=== PATIENT | female | born 1995 | race Two or more races ===

== ENCOUNTER 2019-10-31 10:43 | Emergency (ER) | payer MEDICAID ==
[~2019-10-31] VITALS: Ht 160 cm; Wt 69.0 kg
[2019-10-31 11:15] LABS: BILIRUBIN,URINE NEGATIVE (NEG); CLARITY,URINE CLEAR; COLOR,URINE YELLOW; NITRITE,URINE NEGATIVE (NEG); PH,URINE 6.5 (<5.0-8.0); PROTEIN,URINE NEGATIVE (NEG-TRACE); UROBILINOGEN,URINE 0.2 mg/dL (0.2 mg/dL)
[2019-10-31 11:32] LABS: BACTERIA,URINE FEW /HPF (0-FEW); SQUAMOUS EPITHELIAL CELL,UR MOD /LPF; WBC,URINE OCC /HPF (0-4)
[2019-10-31 12:22] LABS: BASO % 1 % (0-3); EOS % 0 % (0-3); HEMOGLOBIN 14.2 g/dL (12.0-15.5); LYMPH # 1.5 x10^3/uL (1.0-4.8); LYMPH % 18 % (24-48); MEAN CORPUSCULAR HEMOGLOBIN 31 pg (25-35); MEAN CORPUSCULAR HGB CONC 34 g/dL (31-37); MEAN CORPUSCULAR VOLUME 90 fL (79-100); MONO # 0.5 x10^3/uL (0.0-1.1); MONO % 6 % (0-9); NEUT # 6.3 x10^3/uL (1.8-7.7); NEUT % 75 % (31-73); PLATELET COUNT 225 x10^3/uL (140-400); RED BLOOD COUNT 4.67 x10^6/uL (3.50-5.40); RED CELL DISTRIBUTION WIDTH 12.3 % (11.5-14.5); WHITE BLOOD COUNT 8.4 x10^3/uL (4.0-11.0)
--- NOTE | 2019-10-31 12:24 | RAD ---
First trimester ultrasound less than 14 weeks: INDICATIONS: . Vaginal bleeding. Findings: Transabdominal study: Number of fetuses: Single. Average crown-rump length: 2.23 cm which corresponds to an approximate gestational age of 8 weeks and 6 days +/- 5 days. EDC is June 05, 2020. Sac shape and amniotic fluid volume: Normal. heart rate: 169 beats per minute Placenta location: Indeterminate due to the early stage of gestation. Cervical length: Greater than 3.0 cm. Extrachorionic hemorrhage: None. Uterus: No uterine fibroids are seen. Maternal ovaries: Right ovary: 1.8 cm x 4.1 cm x 1.6 cm. Normal. Color-flow Doppler: Present Left ovary: not visualized due to overlying bowel gas. Adnexa: no adnexal masses are seen. Free fluid: None. Impression: Single intrauterine gestation with approximate gestational age of 8 weeks and 6 days with an EDC of June 05, 2020. heart rate is 169 beats per minute. Electronically signed by: Arnulfo Garces MD (10/31/2019 12:21 PM) [id number]
--- NOTE | 2019-10-31 12:59 | PHYS DOC ---
Past Medical History Past Medical History: Other Additional Past Medical Histor: PCOS Past Surgical History: Appendectomy Smoking Status: Never Smoker Alcohol Use: None General Adult EDM: Chief Complaint: VAGINAL BLEEDING HPI: HPI: Patient is a 24 year old female, accompanied by her significant other, who presents to the emergency department with complaints of right lower quadrant abd ominal pain since yesterday and the onset of vaginal bleeding that began today. Patient states she is currently , this is her first . She reports that her last menstrual cycle was on August 042019, and her due date is June 042020. Patient states that it first there was a small amount of bright red blood this morning followed by dark brown blood. She denies any irregular vaginal discharge, vaginal odor, dysuria, hematuria, or low back pain. She denies any vomiting, diarrhea, cough, fever, shortness of breath, or rash. Patient states she has had nausea throughout the . She currently rates the pain a 7 out of 10 on the pain scale, she denies any alleviating or exacerbating factors, the pain does not radiate. Patient reports a prior history of an appendectomy and PCOS. Review of Systems: Review of Systems: Constitutional: Denies fever or chills. [] Eyes: Denies change in visual acuity. [] HENT: Denies nasal congestion or sore throat. [] Respiratory: Denies cough or shortness of breath. [] Cardiovascular: Denies chest pain or edema. [] GI: See HPI : Denies dysuria; see HPI. [] Musculoskeletal: Denies back pain or joint pain. [] Integument: Denies rash. [] Neurologic: Denies headache Psychiatric: Denies depression or anxiety. [] Heart Score: Risk Factors: Risk Factors: DM, Current or recent (<one month) smoker, HTN, HLP, family history of CAD, obesity. Risk Scores: Score 0 - 3: 2.5% MACE over next 6 weeks - Discharge Home Score 4 - 6: 20.3% MACE over next 6 weeks - Admit for Clinical Observation Score 7 - 10: 72.7% MACE over next 6 weeks - Early Invasive Strategies Allergies: Allergies: Allergies Coded Allergies Type Severity Reaction Last Updated Verified No Known Drug Allergies 10/31/19 No Physical Exam: PE: Constitutional: Well developed, well nourished, no acute distress, non-toxic appearance. [] HENT: Normocephalic, atraumatic, bilateral external ears normal, nose normal. [] Eyes: PERRLA, EOMI, conjunctiva normal, no discharge. [] Neck: Normal range of motion, no stridor. [] Cardiovascular:Heart rate regular rhythm Lungs & Thorax: Respirations even and unlabored, no retractions, no respiratory distress Abdomen: soft, right lower quadrant tenderness, no rebound tenderness, no guarding Back: No CVA tenderness Skin: Warm, dry, no erythema, no rash. [] Extremities: No cyanosis, ROM intact, no edema. [] Neurologic: Alert and oriented X 3, no focal deficits noted. [] Psychologic: Affect normal, judgement normal, mood normal. [] Current Patient Data: Labs: Laboratory Tests Test 10/31/19 10:53 10/31/19 12:10 Urine Collection Type Unknown Urine Color Yellow Urine Clarity Clear Urine pH 6.5 (<5.0-8.0) Urine Specific [place] 1.010 (1.000-1.030) Urine Protein Negative mg/dL (NEG-TRACE) Urine Glucose (UA) Negative mg/dL (NEG) Urine Ketones (Stick) 40 mg/dL (NEG) Urine Blood Negative (NEG) Urine Nitrite Negative (NEG) Urine Bilirubin Negative (NEG) Urine Urobilinogen Dipstick 0.2 mg/dL (0.2 mg/dL) Urine Leukocyte Esterase Negative (NEG) Urine RBC 1-2 /HPF (0-2) Urine WBC Occ /HPF (0-4) Urine Squamous Epithelial Cells Mod /LPF Urine Bacteria Few /HPF (0-FEW) Urine Mucus Slight /LPF White Blood Count 8.4 x10^3/uL (4.0-11.0) Red Blood Count 4.67 x10^6/uL (3.50-5.40) Hemoglobin 14.2 g/dL (12.0-15.5) Hematocrit 42.0 % (36.0-47.0) Mean Corpuscular Volume 90 fL (79-100) Mean Corpuscular Hemoglobin 31 pg (25-35) Mean Corpuscular Hemoglobin Concent 34 g/dL (31-37) Red Cell Distribution Width 12.3 % (11.5-14.5) Platelet Count 225 x10^3/uL (140-400) Neutrophils (%) (Auto) 75 % (31-73) H Lymphocytes (%) (Auto) 18 % (24-48) L Monocytes (%) (Auto) 6 % (0-9) Eosinophils (%) (Auto) 0 % (0-3) Basophils (%) (Auto) 1 % (0-3) Neutrophils # (Auto) 6.3 x10^3/uL (1.8-7.7) Lymphocytes # (Auto) 1.5 x10^3/uL (1.0-4.8) Monocytes # (Auto) 0.5 x10^3/uL (0.0-1.1) Eosinophils # (Auto) 0.0 x10^3/uL (0.0-0.7) Basophils # (Auto) 0.0 x10^3/uL (0.0-0.2) Laboratory Tests 10/31/19 12:10 Vital Signs: Vital Signs Date Time Temp Pulse Resp B/P (MAP) Pulse Ox O2 Delivery O2 Flow Rate FiO2 10/31/19 10:55 98.1 84 16 128/87 (101) 100 Room Air 98.1 EKG: EKG: [] Radiology/Procedures: Radiology/Procedures: PROCEDURE: OB < 14 WKS First trimester ultrasound less than 14 weeks: INDICATIONS: . Vaginal bleeding. Findings: Transabdominal study: Number of fetuses: Single. Average crown-rump length: 2.23 cm which corresponds to an approximate gestational age of 8 weeks and 6 days +/- 5 days. EDC is June 05, 2020. Sac shape and amniotic fluid volume: Normal. heart rate: 169 beats per minute Placenta location: Indeterminate due to the early stage of gestation. Cervical length: Greater than 3.0 cm. Extrachorionic hemorrhage: None. Uterus: No uterine fibroids are seen. Maternal ovaries: Right ovary: 1.8 cm x 4.1 cm x 1.6 cm. Normal. Color-flow Doppler: Present Left ovary: not visualized due to overlying bowel gas. Adnexa: no adnexal masses are seen. Free fluid: None. Impression: Single intrauterine gestation with approximate gestational age of 8 weeks and 6 days with an EDC of June 05, 2020. heart rate is 169 beats per minute.[] Course & Med Decision Making: Course & Med Decision Making Pertinent Labs and Imaging studies reviewed. (See chart for details) 24-year-old female presents the emergency department with reports of vaginal bleeding and right lower quadrant abdominal pain during . CBC, and UA are unremarkable. Beta-hCG level is 147,035 patient's blood type is O+. Ultrasound revealed a single intrauterine gestation with approximate gestational age of 8 weeks and 6 days with an EDC of June 05, 2020. heart rate is 169 beats per minute. I provided the patient with Dr. Bledsoe's information and encouraged her to follow-up with Dr. Bledsoe's office this week. Practice pelvic rest until follow- up appointment. Return to the ER symptoms worsen. Patient verbalized an understanding of home care, medications, follow-up, and return to ED instructions and was in agreement with the plan of care. [] Dragon Disclaimer: Dragon Disclaimer: This electronic medical record was generated, in whole or in part, using a voice recognition dictation system. Departure Departure Impression: Primary Impression: Vaginal bleeding in Disposition: HOME, SELF-CARE Condition: STABLE Referrals: UNKNOWN PCP NAME (PCP) TURNER BLEDSOE MD Patient Instructions: Vaginal Bleeding During , First Trimester Additional Instructions: Follow up with Dr. Bledsoe's office this week, pelvic rest as discussed until follow up. Tylenol as needed for pain. Return to the ER if symptoms worsen. Justicifation of Admission Dx: Justifications for Admission: Justification of Admission Dx: N/A RACHID VALENCIA APRN Oct 31, 2019 12:59
[2019-10-31 13:05] VITALS: BP 110/67
== END 2019-10-31 13:35 | disposition home or self-care (01) ==
LOC: ER 10:43
DX: O46.91 Antepartum hemorrhage, unspecified, first trimester (principal); R10.31 Right lower quadrant pain; Z3A.08 8 weeks gestation of pregnancy; Z90.89 Acquired absence of other organs
CPT/HCPCS: 36415; 76801; 81001; 84702; 85025; 86900; 86901; 99285-25

== ENCOUNTER 2020-12-19 17:47 | Emergency (ER) | payer MEDICAID | END 2020-12-19 23:30 | disposition left against medical advice (07) | LOC: ER 17:47 | DX: M54.5 Low back pain (principal); Z53.21 Procedure and treatment not carried out due to patient leaving prior to being seen by health care provider ==